=== PATIENT | female | born 1955 | race Asian ===

== ENCOUNTER 2017-10-19 07:01 | Emergency (ER) | payer OTHER, BC ==
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
[2017-10-19] MEDS ORDERED: MOTRIN PO ONE ×2 (08:10→08:13)
[2017-10-19 08:33] VITALS: BP 140/70
== END 2017-10-19 08:31 | disposition home or self-care (01) ==
LOC: ED 07:01
DX: M25.562 Pain in left knee (principal); M79.652 Pain in left thigh; F17.200 Nicotine dependence, unspecified, uncomplicated; Z90.710 Acquired absence of both cervix and uterus; Z90.49 Acquired absence of other specified parts of digestive tract; V49.09XA Driver injured in collision with other motor vehicles in nontraffic accident, initial encounter; Y93.89 Activity, other specified; Y99.8 Other external cause status; Y92.488 Other paved roadways as the place of occurrence of the external cause
CPT/HCPCS: 99282